=== PATIENT | male | born 1980 | race Caucasian/White ===

== ENCOUNTER → 2017-09-01 | Outpatient (CLI) | payer OTHER ==
--- NOTE | 2017-09-01 22:50 | CONS ---
CONSULTATION Consultation note for poor sleep quality, possible sleep apnea. A 37-year-old male patient, coming in for further advice regarding his chronic ongoing sleep problems. The patient has a hard time initiating and maintaining sleep and any time going to sleep, he wakes up from sleep and his sleep is excessively fragmented. He himself has very poor sleep hygiene. He goes to bed at various times. He does not have a set time to go to bed and he does not have a set time to wake up. He averages somewhere between 5-8 hours of sleep. He is excessively tired and sleepy during the day. He obviously has a component of insomnia in addition to very poor sleep hygiene measures. More recently, he has been snoring and he is quitting breathing and this has further fragmented his sleep. He is at a point where he is not following any schedule in his sleep. He is looking for further advice. He has gained some weight which is in the order of 20-30 pounds over the past several years. No head trauma. No meningitis. No anxiety. No depression. No chronic pain. No shortness of breath. No acid reflux. No cardiac disease or palpitations. No history of congestion heart failure. No substance abuse. No alcoholism. He is a chronic smoker. No other complaints otherwise. PAST MEDICAL HISTORY: Negative. PAST SURGICAL HISTORY: Negative. Drug allergies not known. He is allergic to BEE STINGS. Medications are none. He has tried some [id number] sleep medication without much help. Family history is negative for sleep apnea or any chronic insomnia. REVIEW OF SYSTEMS: A 12-point review of system was done. Positive for insomnia, both sleep onset and sleep and sleep maintenance insomnia. He has been snoring loud. No restlessness in lower extremities. No sleepwalking or sleep talking. No anxiety. No depression. No panic. No palpitation. No heartburn. No sleep paralysis, hallucinations or cataplexy. His current vitals: BP is 120/73, pulse 82, respirations 16, temperature 97.4, neck size 17 inches. Weight is 252. Height is 6 feet 1 inch. Saturation 98% on room air. GENERAL APPEARANCE: Calm, comfortable. Head is atraumatic, normocephalic. Neck is short. There is crowding posterior pharynx, Mallampati class IV. There is no goiter or neck mass. LUNGS: Clear to auscultation. HEART: Sounds regular rate and rhythm. Normal S1, S2. No S3. No murmurs. ABDOMEN: Soft, nontender. No organomegaly. EXTREMITIES: No edema. No cyanosis or clubbing. SKIN: Negative for any wounds or ulceration. IMPRESSION: 1. Chronic sleep onset and maintenance insomnia. 2. Extremely poor sleep hygiene measures. 3. Possible obstructive sleep apnea. 4. Chronic fatigue and sleepiness. G[place]eland score is 5. PLAN: 1. I educated the patient on importance of maintaining a sleep-wake cycle. He needs to go to bed at set times. 2. Improve sleep hygiene measures and we went over the sleep hygiene measures at length and the patient will hopefully implement these measures. 3. Avoid alcoholic beverages. 4. Avoid caffeinated beverages. 5. Regular exercise. 6. Proceed with a screening polysomnogram. The patient was given Ambien 10 mg for sleep induction and maintenance to be started 3 days prior to the sleep study and he will have a tablet on the day of his sleep study to ensure adequate sleep and this should help us to get adequate information from the PSG. Further recommendations are to follow accordingly. MMODL / IJN: [id number] /
== END | disposition home or self-care (01) ==
LOC: SLEEP 15:13
PROVIDERS: ATTEND Internal Medicine Critical Care Medicine
DX: G47.00 Insomnia, unspecified (principal); R53.82 Chronic fatigue, unspecified; Z91.030 Bee allergy status
CPT/HCPCS: 99211

== ENCOUNTER → 2018-02-23 | Outpatient (CLI) | payer OTHER ==
--- NOTE | 2018-02-23 18:41 | PN ---
PROGRESS NOTE This patient is coming in for a CPAP compliance evaluation. The patient was diagnosed having MALORIE with an AHI of 18. Currently on CPAP pressure of 9. His main complaint is that the pressure itself he feels to be low and he likes to increase the pressure to higher levels. I checked his compliance data. He is averaging around 7.1 hours of CPAP use per night. His AHI while on treatment is down to 1.9. His leak factor 0 L/minute. He is using the CPAP more than 4 hours 100% of the time. He is benefiting from the treatment and he has no specific complaints. His only complaint is the low pressure sensation. He has zero REM time and he would like to keep it that way. He is using the DreamWear nose pillow. REVIEW OF SYSTEMS: A 12-point review of system was done. Positive findings are mentioned above history of present illness. BP is 124/83, pulse 82, respirations 16, weight is 254, temperature 97.7, saturation 97% on room air. GENERAL APPEARANCE: Calm, comfortable. HEAD: Atraumatic, normocephalic. NECK: Supple. There is no JVD. No goiter or neck masses. Mallampati class IV. LUNGS: Clear to auscultation. HEART: Sounds are regular rate and rhythm. Normal S1, S2. No S3. No murmurs. ABDOMEN: Soft, nontender. No organomegaly. EXTREMITIES: No edema. No cyanosis or clubbing. NEUROLOGIC: Alert and oriented x3. There is no focal neurological deficit. PSYCHIATRIC: Negative for anxiety or depression. IMPRESSION: 1. Obstructive sleep apnea. moderate to severe apnea-hypopnea index of 18 currently on CPAP at a pressure of 9. 2. Improved sleep quality in general. The patient is requiring 10 of Ambien for sleep induction. 3. Poor sleep hygiene measures which have improved after counseling education. PLAN: 1. Increase the CPAP pressure up to 11 cm of water. This was an arbitrary increase to make the patient more comfortable, as the patient is requiring higher pressure sensation. 2. Continue the same DreamWear nose mask. 3. Ambien 10 mg on an as needed basis for sleep induction. 4. See me back in a year's time in follow up. Encourage weight loss. MMODL / IJN: [id number] /
== END ==
LOC: SLEEP 16:22
PROVIDERS: ATTEND Internal Medicine Critical Care Medicine
DX: G47.33 Obstructive sleep apnea (adult) (pediatric) (principal); Z99.89 Dependence on other enabling machines and devices; Z79.899 Other long term (current) drug therapy